=== PATIENT | male | born 1970 | race Caucasian/White ===

== ENCOUNTER 2018-11-22 15:47 | Emergency (ER) | payer BC ==
[~2018-11-22] VITALS: Ht 152.4 cm; Wt 81.8 kg
[~2018-11-22 15:47] MED LIST: ONDA8TAB9 PO
[2018-11-22 16:11] VITALS: BP 167/105
[2018-11-22] MEDS ORDERED: LIDOcaine 1% 30ml preserv. free vial IJ ONE (16:40)
[2018-11-22] MEDS ORDERED: TETanus/Pertussis (Acell)/Diphther VAC/PF (Tdap-Adult) 0.5ml syringe IM ONE (16:40)
[2018-11-22] MEDS ORDERED: ceFAZolin 1GM/D5W- ADD-VANTAGE 50 ML IV ONE ×2 (16:40→17:00)
[2018-11-22] MEDS ORDERED: LORazepam 2 mg/ml vial IV ONE (17:30)
[2018-11-22] MEDS ORDERED: morphine 4 MG/ML inj SYRINge IV ONE (17:30)
[2018-11-22] MEDS ORDERED: ondansetron/PF 4mg/2ml inj IV ONE (17:30)
[2018-11-22] MEDS ORDERED: CEPH500C5 PO (18:38)
[2018-11-22] MEDS ORDERED: HYDR-4353 PO (18:38)
== END 2018-11-22 19:14 | disposition home or self-care (01) ==
LOC: ER 15:47
DX: S62.631B Displaced fracture of distal phalanx of left index finger, initial encounter for open fracture (principal); S68.111A Complete traumatic metacarpophalangeal amputation of left index finger, initial encounter; Z87.442 Personal history of urinary calculi; W45.8XXA Other foreign body or object entering through skin, initial encounter; Y93.89 Activity, other specified; Y92.69 Other specified industrial and construction area as the place of occurrence of the external cause; Y99.9 Unspecified external cause status
CPT/HCPCS: 26951; 73140; 90471; 90715; 96365; 96375; 99284; J0690; J2060; J2270; J2405; J3490; 99283